=== PATIENT | female | born 1975 | race Caucasian/White ===

== ENCOUNTER 2018-10-28 10:55 | Emergency (ER) | payer OTHER ==
[~2018-10-28] VITALS: Ht 165.1 cm; Wt 82.0 kg
[2018-10-28 11:27] VITALS: BP 137/80
== END 2018-10-28 16:42 | disposition left against medical advice (07) ==
LOC: ER 13:22
DX: Z53.21 Procedure and treatment not carried out due to patient leaving prior to being seen by health care provider (principal)